=== PATIENT | male | born 2000 | race African-American/Black ===

== ENCOUNTER 2020-04-29 02:40 | Emergency (ER) | payer OTHER, SELFPAY ==
--- NOTE | 2020-04-29 03:07 | ER ---
Nurse's Notes [facility] Name: Armand Bliss JR. Age: 19 yrs Sex: Male : 2000 Arrival Date: 04/29/2020 Time: 02:42 Bed 5 Private MD: Diagnosis: Dysphagia-irritation Presentation: 04/29 02:52 Chief complaint: Patient states: sore throat for couple of days. denies fever, cough, rv or SOB. Coronavirus screen: Proceed with normal triage. Ebola Screen: No symptoms or risks identified at this time. Initial Sepsis Screen: Does the patient meet any 2 criteria? No. Patient's initial sepsis screen is negative. Does the patient have a suspected source of infection? No. Patient's initial sepsis screen is negative. Risk Assessment: Do you want to hurt yourself or someone else? Patient reports no desire to harm self or others. Onset of symptoms is unknown. 02:52 Method Of Arrival: Ambulatory rv 02:52 Acuity: KATIE 5 rv Triage Assessment: 02:53 General: Appears comfortable, Behavior is calm, cooperative. Pain: Complains of pain in rv throat. EENT: Throat is clear is pink. Neuro: Level of Consciousness is awake, alert, obeys commands, Oriented to person, place, time, situation. Respiratory: Airway is patent Respiratory effort is even, unlabored. Historical: - Allergies: 02:53 No Known Allergies; rv - PMHx: 02:53 None; rv - PSHx: 02:53 None; rv - Immunization history:: Adult Immunizations up to date. - Social history:: Smoking status: Patient reports the use of cigarette tobacco products, denies chronic smoking, but will smoke occasionally. Screenin:54 Abuse screen: Denies threats or abuse. Denies injuries from another. Nutritional rv screening: No deficits noted. Tuberculosis screening: No symptoms or risk factors identified. Fall Risk None identified. Assessment: 02:54 Respiratory: Airway is patent Breath sounds are clear bilaterally. rv Vital Signs: 02:52 BP 124 / 93; Pulse 88; Resp 16; Pulse Ox 100% on R/A; rv 02:56 Temp 98.6(O); Weight 68.04 kg; Height 5 ft. 8 in. (172.72 cm); rv 02:56 Body Mass Index 22.81 (68.04 kg, 172.72 cm) rv ED Course: 02:42 Patient arrived in ED. ds1 02:43 Gabino Lee MD is Attending Physician. juliet 02:52 Fermin Crawford, RN is Primary Nurse. rv 02:53 Triage completed. rv 02:54 Arm band placed on Patient placed in the treatment room, on a stretcher, Patient rv notified of wait time. 02:55 Patient has correct armband on for positive identification. Pulse ox on. NIBP on. rv 03:06 Teresa Long MD is Referral Physician. juliet 03:21 Neck Soft Tissue XRAY In Process Unspecified. EDMS 03:21 No provider procedures requiring assistance completed. Patient did not have IV access rv during this emergency room visit. Administered Medications: No medications were administered Outcome: 03:07 Discharge ordered by . juliet 03:21 Discharged to home ambulatory. rv 03:21 Condition: good 03:21 Discharge instructions given to patient, Instructed on discharge instructions, follow up and referral plans. Demonstrated understanding of instructions, follow-up care. 03:22 Patient left the ED. rv Signatures: Dispatcher [employer] EDAL Gabino Lee MD MD cha Sanford, Demi ds1 Fermin Crawford, RN RN rv
--- NOTE | 2020-04-29 03:07 | EDPHYS ---
Physician Documentation [facility] Name: Armand Bliss JR. Age: 19 yrs Sex: Male : 2000 Arrival Date: 04/29/2020 Time: 02:42 Bed 5 Private MD: ED Physician Gabino Lee HPI: 04/29 02:57 This 19 yrs old Black Male presents to ER via Ambulatory with complaints of Sore Throat.[facility] 02:57 The patient presents with sore throat, a foreign body sensation in the throat. The [facility] patient describes throat pain as constant. Onset: The symptoms/episode began/occurred 7 day(s) ago. Severity of symptoms: At their worst the symptoms were mild, in the emergency department the symptoms are unchanged. Modifying factors: The symptoms are alleviated by nothing, the symptoms are aggravated by nothing. Associated signs and symptoms: The patient has no apparent associated signs or symptoms. The patient has experienced similar episodes in the past, several times. Historical: - Allergies: 02:53 No Known Allergies; rv - PMHx: 02:53 None; rv - PSHx: 02:53 None; rv - Immunization history:: Adult Immunizations up to date. - Social history:: Smoking status: Patient reports the use of cigarette tobacco products, denies chronic smoking, but will smoke occasionally. ROS: 02:58 Constitutional: Negative for fever, chills, and weight loss, Eyes: Negative for injury, juliet pain, redness, and discharge, Neck: Negative for injury, pain, and swelling, Cardiovascular: Negative for chest pain, palpitations, and edema, Respiratory: Negative for shortness of breath, cough, wheezing, and pleuritic chest pain, Abdomen/GI: Negative for abdominal pain, nausea, vomiting, diarrhea, and constipation, Back: Negative for injury and pain, : Negative for injury, bleeding, discharge, and swelling, MS/Extremity: Negative for injury and deformity, Skin: Negative for injury, rash, and discoloration, Neuro: Negative for headache, weakness, numbness, tingling, and seizure, Psych: Negative for depression, anxiety, suicide ideation, homicidal ideation, and hallucinations, Allergy/Immunology: Negative for hives, rash, and allergies, Endocrine: Negative for neck swelling, polydipsia, polyuria, polyphagia, and marked weight changes, Hematologic/Lymphatic: Negative for swollen nodes, abnormal bleeding, and unusual bruising. 02:58 ENT: Positive for difficulty swallowing. Exam: 02:58 Constitutional: This is a well developed, well nourished patient who is awake, alert, juliet and in no acute distress. Head/Face: Normocephalic, atraumatic. Eyes: Pupils equal round and reactive to light, extra-ocular motions intact. Lids and lashes normal. Conjunctiva and sclera are non-icteric and not injected. Cornea within normal limits. Periorbital areas with no swelling, redness, or edema. ENT: Nares patent. No nasal discharge, no septal abnormalities noted. Tympanic membranes are normal and external auditory canals are clear. Oropharynx with no redness, swelling, or masses, exudates, or evidence of obstruction, uvula midline. Mucous membranes moist. Neck: Trachea midline, no thyromegaly or masses palpated, and no cervical lymphadenopathy. Supple, full range of motion without nuchal rigidity, or vertebral point tenderness. No Meningismus. Chest/axilla: Normal chest wall appearance and motion. Nontender with no deformity. No lesions are appreciated. Cardiovascular: Regular rate and rhythm with a normal S1 and S2. No gallops, murmurs, or rubs. Normal PMI, no JVD. No pulse deficits. Respiratory: Lungs have equal breath sounds bilaterally, clear to auscultation and percussion. No rales, rhonchi or wheezes noted. No increased work of breathing, no retractions or nasal flaring. Abdomen/GI: Soft, non-tender, with normal bowel sounds. No distension or tympany. No guarding or rebound. No evidence of tenderness throughout. Back: No spinal tenderness. No costovertebral tenderness. Full range of motion. Male : Normal genitalia with no discharge or lesions. Skin: Warm, dry with normal turgor. Normal color with no rashes, no lesions, and no evidence of cellulitis. MS/ Extremity: Pulses equal, no cyanosis. Neurovascular intact. Full, normal range of motion. Neuro: Awake and alert, GCS 15, oriented to person, place, time, and situation. Cranial nerves II-XII grossly intact. Motor strength 5/5 in all extremities. Sensory grossly intact. Cerebellar exam normal. Normal gait. Psych: Awake, alert, with orientation to person, place and time. Behavior, mood, and affect are within normal limits. 03:08 Musculoskeletal/extremity: DVT Exam: No signs of deep vein thrombosis. no pain, no juliet swelling, no tenderness, negative Homans' sign noted on exam, no appreciated bluish discoloration, no erythema, no increased warmth. Vital Signs: 02:52 BP 124 / 93; Pulse 88; Resp 16; Pulse Ox 100% on R/A; rv 02:56 Temp 98.6(O); Weight 68.04 kg; Height 5 ft. 8 in. (172.72 cm); rv 02:56 Body Mass Index 22.81 (68.04 kg, 172.72 cm) rv MDM: 02:45 Patient medically screened. [facility] 02:59 Differential diagnosis: Allergic rhinitis, laryngitis, peritonsillar abscess juliet pharyngitis, retropharyngeal abcess tonsillitis, tracheobronchitis. Data reviewed: vital signs, nurses notes, radiologic studies, plain films. Data interpreted: bus driver/monitor: not applicable for this patient encounter. rate is 88 beats/min, Pulse oximetry: on room air is 100 %. Test interpretation: by ED physician or midlevel provider: plain radiologic studies. Counseling: I had a detailed discussion with the patient and/or guardian regarding: the historical points, exam findings, and any diagnostic results supporting the discharge/admit diagnosis, radiology results, the need for outpatient follow up, for definitive care, an ENT specialist. ED course: exam was without significant findings, explained findings and importance of follow up. 03:12 ED course: soft tissue neg, no fb and no sts. [facility] 04/29 02:56 Order name: Neck Soft Tissue XRAY [facility] 04/29 02:56 Order name: PO challenge; Complete Time: 03:17 juliet Administered Medications: No medications were administered Disposition: 04/29/20 03:07 Discharged to Home. Impression: Dysphagia - irritation. - Condition is Stable. - Discharge Instructions: Dysphagia. - Medication Reconciliation Form, Thank You Letter, Antibiotic Education, Prescription Opioid Use form. - Follow up: Private Physician; When: 2 - 3 days; Reason: Recheck today's complaints, Continuance of care, Re-evaluation by your physician. Follow up: Teresa Long MD; When: 2 - 3 days; Reason: Recheck today's complaints, Re-evaluation by your physician. - Problem is new. - Symptoms have improved. Signatures: Dispatcher [employer] EDMS Gabino Lee MD MD cha Vicente, Ronaldo RN RN rv Corrections: (The following items were deleted from the chart) 03:22 03:07 04/29/2020 03:07 Discharged to Home. Impression: Dysphagia - irritation. rv Condition is Stable. Forms are Medication Reconciliation Form, Thank You Letter, Antibiotic Education, Prescription Opioid Use. Follow up: Private Physician; When: 2 - 3 days; Reason: Recheck today's complaints, Continuance of care, Re-evaluation by your physician. Follow up: Teresa Long; When: 2 - 3 days; Reason: Recheck today's complaints, Re-evaluation by your physician. Problem is new. Symptoms have improved. juliet
[2020-04-29 03:30] VITALS: BP 124/93; TEMP 98.6; O2SAT 100
--- NOTE | 2020-04-29 10:26 | RAD REPORT ---
EXAM DESCRIPTION: RAD - Neck Soft Tissue - 04/29/2020 3:20 am CLINICAL HISTORY: Neck pain/sore throat FINDINGS: Hypopharynx is incompletely distended. Subglottic trachea unremarkable. Prevertebral soft tissue appears normal. A radiopaque foreign body is not visualized
== END 2020-04-29 03:22 | disposition home or self-care (01) ==
LOC: ER 02:40
DX: R13.10 Dysphagia, unspecified (principal); F17.210 Nicotine dependence, cigarettes, uncomplicated
CPT/HCPCS: 70360; 99283

== ENCOUNTER 2021-11-19 13:24 | Emergency (ER) | payer SELFPAY ==
--- NOTE | 2021-11-19 14:18 | ER ---
Nurse's Notes [facility] Name: Armand Bliss JR. Age: 21 yrs Sex: Male : 2000 Arrival Date: 11/19/2021 Time: 13:40 Bed 8 Private MD: Diagnosis: Other depressive episodes Presentation: 11/19 13:57 Chief complaint: EMS states: "the pt is having thoughts of suicide today and looking to [facility] get help. pt reported having a strong support group with his mom. he also reported self medicating to help, but is wanting some professional help.". Coronavirus screen: At this time, the client does not indicate any symptoms associated with coronavirus-19. Ebola Screen: Patient negative for fever greater than or equal to 101.5 degrees Fahrenheit, and additional compatible Ebola Virus Disease symptoms. Initial Sepsis Screen: Does the patient meet any 2 criteria? No. Patient's initial sepsis screen is negative. Does the patient have a suspected source of infection? No. Patient's initial sepsis screen is negative. Risk Assessment: Do you want to hurt yourself or someone else? Patient reports desire/thoughts of hurting themselves or someone else. Provider notified. Onset of symptoms was November 19, 2021. 13:57 Method Of Arrival: Law Enforcement: [facility] [place] [facility] 13:57 Acuity: KATIE 2 jd3 Historical: - Allergies: 13:59 PENICILLINS; jd3 - Home Meds: 13:59 None [Active]; jd3 - PMHx: 13:59 None; jd3 - PSHx: 13:59 None; jd3 - Immunization history:: Adult Immunizations up to date, Client reports having NOT received the Covid vaccine. Flu vaccine is not up to date. - Social history:: Smoking status: Patient denies any tobacco usage or history of. Patient/guardian denies using alcohol, street drugs, The patient lives with family. - Family history:: not pertinent. Screenin:04 Abuse screen: Denies threats or abuse. Nutritional screening: No deficits noted. jd3 Tuberculosis screening: No symptoms or risk factors identified. Fall Risk Ambulatory Aid- None/Bed Rest/Nurse Assist (0 pts). Gait- Normal/Bed Rest/Wheelchair (0 pts) Mental Status- Oriented to own ability (0 pts). Total Ruiz Fall Scale indicates No Risk (0-24 pts). Assessment: 14:03 General: Appears in no apparent distress. comfortable, Behavior is calm, cooperative, jd3 appropriate for age. Pain: Denies pain. Neuro: Level of Consciousness is awake, alert, obeys commands, Oriented to person, place, time, situation. Cardiovascular: Denies chest pain, Capillary refill < 3 seconds Patient's skin is warm and dry. Respiratory: Airway is patent Respiratory effort is even, unlabored, Respiratory pattern is regular, symmetrical, Denies cough, shortness of breath. GI: No signs and/or symptoms were reported involving the gastrointestinal system. : No signs and/or symptoms were reported regarding the genitourinary system. EENT: No signs and/or symptoms were reported regarding the EENT system. Derm: Skin is intact, Skin is dry, Skin is normal, Skin temperature is warm. Musculoskeletal: No signs and/or symptoms reported regarding the musculoskeletal system. 14:39 Reassessment: Patient appears in no apparent distress at this time. Patient and/or jd3 family updated on plan of care and expected duration. Pain level reassessed. Patient is alert, oriented x 3, equal unlabored respirations, skin warm/dry/pink. pt discharged to be treated with out patient care Patient denies pain at this time. Psych: 14:13 [place] Suicide Severity Screening: In the past month, have you wished you were jd3 or wished you could go to sleep and not wake up? Patient responds "No." "In the past month, have you actually had any thoughts of killing yourself?" Patient responds "no." "In your lifetime, have you ever done anything, started to do anything, or prepared to do anything to end your life?" Patient responds "yes." Patient reports suicidal intent occurred greater than 3 months prior. pt reported not wanting to not hurt self at this moment and was wanting helpful resources to get help. Subjective: Patient's mood is hopeful Delusions are denied, Hallucinations are denied Having thoughts of suicide. Denies suicidal plan. Objective: Patient is cooperative, Speech is normal, Affect is appropriate. Interventions: pt to be discharged with mental health resources. Safety Checks: Door is open. No visitors are present at this time. sitter at bedside. Pt denies substance abuse. 14:41 Commitment: pt discharged. jd3 Vital Signs: 14:00 BP 120 / 75; Pulse 68; Resp 16 S; Temp 98.3(O); Pulse Ox 99% on R/A; Weight 56.7 kg jd3 (R); Height 5 ft. 9 in. (175.26 cm) (R); Pain 0/10; 14:00 Body Mass Index 18.46 (56.70 kg, 175.26 cm) j ED Course: 13:40 Patient arrived in ED. eb 13:56 Sam Mejía RN is Primary Nurse. jd3 13:59 Triage completed. jd3 14:03 Loki Crisostomo MD is Attending Physician. ma2 14:03 Arm band placed on. jd3 14:04 Patient has correct armband on for positive identification. Bed in low position. Call j light in reach. Side rails up X 1. Adult w/ patient. Pulse ox on. NIBP on. 14:39 No provider procedures requiring assistance completed. Patient did not have IV access j during this emergency room visit. Administered Medications: No medications were administered Outcome: 14:17 Discharge ordered by . [facility] 14:39 Discharged to home ambulatory, with family. jd3 14:39 Condition: stable 14:39 Discharge instructions given to patient, Instructed on discharge instructions, follow up and referral plans. fallow up with getting psych care Demonstrated understanding of instructions, follow-up care. 14:42 Patient left the ED. jd3 Signatures: Sam Mejía RN RN j Loki Crisostomo MD MD [facility] Darlene Carson Corrections: (The following items were deleted from the chart) 14:00 13:59 Allergies: No Known Allergies; jd3 jd3
--- NOTE | 2021-11-19 14:18 | EDPHYS ---
Physician Documentation [facility] Name: Armand Bliss JR. Age: 21 yrs Sex: Male : 2000 Arrival Date: 11/19/2021 Time: 13:40 Bed 8 Private MD: ED Physician Loki Crisostomo HPI: 11/19 14:07 This 21 yrs old Black Male presents to ER via Law Enforcement with complaints of ma2 Depression. 14:07 Onset: The symptoms/episode began/occurred gradually, 1 year(s) ago. Associated signs ma2 and symptoms: Pertinent negatives: anxiety, chest pain, delusions, hallucinations, headache, homicidal ideation, night sweats, suicide ideation, tremor. Severity of symptoms: At their worst the symptoms were very mild. The patient has not experienced similar symptoms in the past. Patient feels mildly depressed, no SI, no HI or AVH. No guns at home, he is employed, has support system lives with his mom. No plan never had suicidal attempt in the past, never been diagnosed with depression in the past. Historical: - Allergies: 13:59 PENICILLINS; jd3 - Home Meds: 13:59 None [Active]; jd3 - PMHx: 13:59 None; jd3 - PSHx: 13:59 None; jd3 - Immunization history:: Adult Immunizations up to date, Client reports having NOT received the Covid vaccine. Flu vaccine is not up to date. - Social history:: Smoking status: Patient denies any tobacco usage or history of. Patient/guardian denies using alcohol, street drugs, The patient lives with family. - Family history:: not pertinent. ROS: 14:07 Constitutional: Negative for fever, chills, and weight loss. ma2 14:07 All other systems are negative. Exam: 14:07 Constitutional: This is a well developed, well nourished patient who is awake, alert, ma2 and in no acute distress. Head/Face: Normocephalic, atraumatic. Respiratory: Lungs have equal breath sounds bilaterally, clear to auscultation and percussion. No rales, rhonchi or wheezes noted. No increased work of breathing, no retractions or nasal flaring. Abdomen/GI: Soft, non-tender, with normal bowel sounds. No distension or tympany. No guarding or rebound. No evidence of tenderness throughout. Skin: Warm, dry with normal turgor. Normal color with no rashes, no lesions, and no evidence of cellulitis. MS/ Extremity: Pulses equal, no cyanosis. Neurovascular intact. Full, normal range of motion. Neuro: Awake and alert, GCS 15, oriented to person, place, time, and situation. Cranial nerves II-XII grossly intact. Motor strength 5/5 in all extremities. Sensory grossly intact. Cerebellar exam normal. Normal gait. Vital Signs: 14:00 BP 120 / 75; Pulse 68; Resp 16 S; Temp 98.3(O); Pulse Ox 99% on R/A; Weight 56.7 kg jd3 (R); Height 5 ft. 9 in. (175.26 cm) (R); Pain 0/10; 14:00 Body Mass Index 18.46 (56.70 kg, 175.26 cm) jd3 MDM: 14:07 Patient medically screened. ma2 14:07 Differential diagnosis: acute psychotic break, depression, psychosis secondary to ma2 non-compliance. Data reviewed: vital signs, nurses notes, EMS record. Counseling: I had a detailed discussion with the patient and/or guardian regarding: the historical points, exam findings, and any diagnostic results supporting the discharge/admit diagnosis, the presence of at least one elevated blood pressure reading (>120/80) during this emergency department visit, the need for outpatient follow up. Response to treatment: There is no appreciated change of the patient's symptoms at this time. ED course: Low risk depression per sad persons score.. Administered Medications: No medications were administered Disposition Summary: 11/19/21 14:17 Discharge Ordered Location: Home ma2 Condition: Stable ma2 Diagnosis - Other depressive episodes ma2 Followup: ma2 - With: Private Physician - When: Tomorrow - Reason: Continuance of care Discharge Instructions: - Discharge Summary Sheet ma2 - Supporting Someone With Depression ma2 - Managing Depression, Teen ma2 - Managing Depression, Adult ma2 Forms: - Medication Reconciliation Form ma2 - Thank You Letter ma2 - Antibiotic Education ma2 - Prescription Opioid Use ma2 - Work release form ll1 Signatures: Sam Mjeía RN RN jd3 Loki Crisostomo MD MD ma2 Corrections: (The following items were deleted from the chart) 14:00 13:59 Allergies: No Known Allergies; jd3 jd3
[2021-11-19 14:55] VITALS: BP 120/75; TEMP 98.3; O2SAT 99
== END 2021-11-19 14:42 | disposition home or self-care (01) ==
LOC: ER 13:24
DX: F32.89 Other specified depressive episodes (principal)
CPT/HCPCS: 99284

== ENCOUNTER 2024-03-11 12:25 | Emergency (ER) | payer SELFPAY ==
[2024-03-11] MEDS ORDERED: ONDANSETRON 4 MG/2 ML VIAL ONE (13:14)
[2024-03-11] MEDS ORDERED: LORazepam 2 MG/ML VIAL ONE (13:15)
[2024-03-11] MEDS ORDERED: NA CHLORIDE 0.9% 1,000 ML ONE (13:15)
[2024-03-11 14:12] LABS: Absolute Basophils 0.1 K/uL (0-0.5); Absolute Lymphocytes (CBC) 0.9 K/uL (0.7-4.9); Absolute Monocytes 0.6 K/uL (0.1-1.3); Absolute Neutrophil 12.1 K/uL (1.8-8.0); Basophils % 0.5 % (0-1.3); Eosinophils % 0.3 % (0-4.4); Hematocrit 43.7 % (39.6-49.0); Hemoglobin 14.1 g/dL (13.6-17.9); Lymphocytes % 6.5 % (15.3-44.8); MCH 28.2 pg (27.0-35.0); MCHC 32.4 g/dL (32.0-36.0); MCV 87.2 fL (80-100); MPV 8.7 fL (7.6-11.3); Monocytes % 4.3 % (3.3-12.3); Neutrophils % 88.4 % (41.7-73.7); Platelets 237 thou/uL (152-406); RBC Red Blood Cell Count 5.01 M/uL (4.33-5.43); Red Cell Distribution Width 13.9 % (12.1-15.2)
[2024-03-11 14:38] LABS: ALT/SGPT 21 U/L (16-61); AST/SGOT 15 U/L (15-37); Albumin 3.8 g/dL (3.4-5.0); Albumin/Globulin Ratio 1.3 (1.1-1.8); Alkaline Phosphatase 103 U/L (45-117); Anion Gap 6.8 mEq/L (5.0-15.0); BUN Blood Urea Nitrogen 13 mg/dL (7-18); Bicarbonate 29 mEq/L (21-32); Bilirubin Total 0.3 mg/dL (0.2-1.0); Globulin 2.9 g/dL (2.3-3.5); Glomerular Filtration Rate 85 ml/min (=/>90); Glucose Level 130 mg/dL (74-106); Potassium 3.8 mEq/L (3.5-5.1); Protein, Total 6.7 g/dL (6.4-8.2); Sodium Level 141 mEq/L (136-145)
[2024-03-11 14:39] LABS: Bilirubin Direct < 0.1 mg/dL (0-0.2); Bilirubin Indirect, Calculated ND mg/dL (0.2-0.8)
[2024-03-11] MEDS ORDERED: DIAZEPAM 10 MG/2 ML INJ SYRINGE ONE (14:43)
[2024-03-11 15:28] LABS: PT Prothrombin Time 11.4 SECONDS (9.5-12.5); PTT, Activated Partial Thromb 24.4 SECONDS (24.3-36.9); Protime INR 1.04
[2024-03-11 16:58] LABS: Blood Morphology Comment NOT SEEN (NOT SEEN); Platelet Estimate ADEQ; White Blood Cell Scan OK (OK)
--- NOTE | 2024-03-11 18:51 | EDPHYS ---
Physician Documentation [facility] Name: Armand Bliss Jr Age: 23 yrs Sex: Male : 2000 Arrival Date: 03/11/2024 Time: 12:25 Bed 5 Private MD: ED Physician Felipe Ny HPI: 03/11 12:43 This 23 yrs old Black Male presents to ER via Wheelchair with complaints of Overdose. ec2 12:43 Patient arrives today for evaluation of ingestion of what he calls a mushroom. Patient ec2 reports he was concerned that it is likely something else. Patient reports some nausea as well as some anxiousness. Also complains of generalized weakness. Reports no thoughts of self-harm or harming others, denies any other concerns.. Historical: - Allergies: 12:33 PENICILLINS; ll1 - PMHx: 12:35 None; ll1 - PSHx: 12:35 None; ll1 - Immunization history:: Adult Immunizations up to date. - Infectious Disease History:: Denies. - Social history:: Smoking status: Reported history of juuling and/or vaping. Patient denies any tobacco usage or history of. ROS: 12:43 Constitutional: as per hpi ec2 Exam: 12:43 Constitutional: GEN: NAD Head: atraumatic Eyes: EOMI Ears: External ears are ec2 normal. CV: Tachycardia LUNGS: no respiratory distress ABD: non-distended SKIN: no evidence of rashes MSK: no evidence of trauma NEURO: moves all extremities equally Vital Signs: 12:36 BP 120 / 59; Pulse 119; Resp 17; Temp 99.2; Pulse Ox 100% ; Weight 67.13 kg; Height 5 ll1 ft. 8 in. ; Pain 9/10; 13:32 BP 127 / 73; Pulse 115; Resp 23; Pulse Ox 99% on R/A; ld1 14:39 BP 111 / 51; Pulse 93; Resp 18; Pulse Ox 100% on R/A; ld1 16:19 BP 112 / 50; Pulse 79; Resp 18; Pulse Ox 99% on R/A; ld1 17:49 BP 118 / 57; Pulse 63; Resp 18; Pulse Ox 100% on R/A; ld1 19:00 BP 115 / 60; Pulse 69; Resp 18; Pulse Ox 99% on R/A; rs5 12:36 Body Mass Index 22.50 (67.13 kg, 172.72 cm) ll1 12:36 Pain Scale: Adult ll1 MDM: 12:42 Patient medically screened. ec2 12:43 Data reviewed: vital signs. ED course: Patient arrives today for evaluation of a drug ec2 ingestion. Examination remarkable tachycardic individual is otherwise cooperative and well-appearing and in no acute distress. Will obtain lab work, urine studies, treat the patient's symptoms with crystalloid, Zofran as well as benzodiazepine. Suspect likely ingestion causing the patient's symptoms today. No thoughts of self-harm or harming others.. 13:31 ED course: EKG independently reviewed and interpreted by me, shows sinus rhythm, rate ec2 of 101, no acute ST segment elevations, nonconcerning intervals, benign early repolarization noted. . 14:41 ED course: On reassessment patient is well-appearing and in no acute distress, patient ec2 does remain totally delirious, over the patient Valium as well. . 18:49 ED course: On reassessment patient is awake and alert and answering questions ec2 appropriately. Will discharge home. Suspect toxidrome from the patient's ingestion troponin. Return precautions given.. 03/11 12:43 Order name: Acetaminophen; Complete Time: 15:04 ec2 03/11 12:43 Order name: Basic Metabolic Panel; Complete Time: 15:04 ec2 03/11 12:43 Order name: CBC with Diff; Complete Time: 17:00 ec2 03/11 12:43 Order name: ETOH Level; Complete Time: 15:04 ec2 03/11 12:43 Order name: Hepatic Function; Complete Time: 15:04 ec2 03/11 12:43 Order name: PT-INR; Complete Time: 15:30 ec2 03/11 12:43 Order name: Ptt, Activated; Complete Time: 15:30 ec2 03/11 12:43 Order name: Salicylate; Complete Time: 15:04 ec2 03/11 14:24 Order name: CBC Smear Scan; Complete Time: 17:00 EDMS 03/11 12:43 Order name: EKG; Complete Time: 12:43 ec2 03/11 12:43 Order name: EKG - Nurse/Tech; Complete Time: 13:32 ec2 03/11 12:43 Order name: IV Saline Lock; Complete Time: 13:32 ec2 03/11 12:43 Order name: Labs collected and sent; Complete Time: 14:38 ec2 03/11 12:43 Order name: Suicide Screening ([place]); Complete Time: 13:32 ec2 Administered Medications: 13:31 Drug: NS 0.9% IV 1000 ml IV at 1 bolus Per protocol; 1000 mL bolus Route: IV; Rate: 1 ld1 bolus; Site: left upper arm; 13:45 Follow up: Response: No adverse reaction rs5 13:31 Drug: Ativan IVP 1 mg IVP once Route: IVP; Site: left upper arm; ld1 13:45 Follow up: Response: No adverse reaction rs5 13:31 Drug: Ondansetron IVP 4 mg IVP once; over 2 minutes Route: IVP; Site: left upper arm; ld1 13:45 Follow up: Response: No adverse reaction rs5 14:48 Drug: Diazepam IVP 10 mg IVP once Route: IVP; Site: left antecubital; ld1 15:05 Follow up: Response: No adverse reaction rs5 Disposition Summary: 03/11/24 18:50 Discharge Ordered Notes: Location: Home ec2 Condition: Stable ec2 Diagnosis - Drug Intoxication ec2 Followup: ec2 - With: Private Physician - When: - Reason: Re-evaluation by your physician Discharge Instructions: - Discharge Summary Sheet ec2 - Illegal Drug Use Information, Adult ec2 Forms: - Medication Reconciliation Form ec2 - Thank You Letter ec2 - Antibiotic Education ec2 - Prescription Opioid Use ec2 - Patient Portal Instructions ec2 - Leadership Thank You Letter ec2 Signatures: Dispatcher [employer] Mehul Nelson RN RN ll1 Vanessa Hicks RN RN ld1 Felipe Ny MD MD ec2 Margarito Lino RN rs5 Corrections: (The following items were deleted from the chart) 12:36 12:35 Social history: Smoking status: Patient denies any tobacco usage or history of. ll1 ll1 12:43 12:43 ACETAMINOPHEN+C.LAB.BRZ ordered. EDMS EDMS 12:43 12:43 BASIC METABOLIC PANEL+C.LAB.BRZ ordered. EDMS EDMS 12:43 12:43 CBC+H.LAB.BRZ ordered. EDMS EDMS 12:43 12:43 ETHANOL+C.LAB.BRZ ordered. EDMS EDMS 12:43 12:43 HEPATIC FUNCTION+C.LAB.BRZ ordered. EDMS EDMS 12:43 12:43 PROTIME (+INR)+COAG.LAB.BRZ ordered. EDMS EDMS 12:43 12:43 PTT, ACTIVATED+COAG.LAB.BRZ ordered. EDMS EDMS 12:43 12:43 SALICYLATE+C.LAB.BRZ ordered. EDMS EDMS 12:43 12:43 URINE DRUG SCREEN+UC.LAB.BRZ ordered. EDMS EDMS
--- NOTE | 2024-03-11 18:51 | ER ---
Nurse's Notes [facility] Name: Armand Bliss Jr Age: 23 yrs Sex: Male : 2000 Arrival Date: 03/11/2024 Time: 12:25 Bed 5 Private MD: Diagnosis: Drug Intoxication Presentation: 03/11 12:36 Chief complaint: Chief complaint: Patient states: Ate edible this AM. Has nausea and ll1 feels weird. Pepto didn't help. 12:36 Coronavirus screen: Client denies travel out of the [place] in the last 14 days. At this ll1 time, the client does not indicate any symptoms associated with coronavirus-19. Ebola Screen: Patient denies travel to an Ebola-affected area in the 21 days before illness onset. Initial Sepsis Screen: Does the patient meet any 2 criteria? No. Patient's initial sepsis screen is negative. Does the patient have a suspected source of infection? No. Patient's initial sepsis screen is negative. Risk Assessment: Do you want to hurt yourself or someone else? Patient reports no desire to harm self or others. Onset of symptoms was March 11, 2024. 12:36 Method Of Arrival: Wheelchair ll1 12:36 Acuity: KATIE 2 ll1 Historical: - Allergies: 12:33 PENICILLINS; ll1 - PMHx: 12:35 None; ll1 - PSHx: 12:35 None; ll1 - Immunization history:: Adult Immunizations up to date. - Infectious Disease History:: Denies. - Social history:: Smoking status: Reported history of juuling and/or vaping. Patient denies any tobacco usage or history of. Screenin:33 [facility] ED Fall Risk Assessment (Adult) History of falling in the last 3 months, ld1 including since admission No falls in past 3 months (0 pts). Abuse screen: Denies threats or abuse. Denies injuries from another. Nutritional screening: No deficits noted. Tuberculosis screening: No symptoms or risk factors identified. Assessment: 13:32 General: Appears in no apparent distress. comfortable, Behavior is cooperative, ld1 anxious. Pain: Denies pain. Neuro: Level of Consciousness is awake, alert, obeys commands, Oriented to person, place, time, situation. Cardiovascular: Capillary refill < 3 seconds Patient's skin is warm and dry. Rhythm is sinus tachycardia. Respiratory: Airway is patent Respiratory effort is even, unlabored. GI: Abdomen is flat, non-distended. : No signs and/or symptoms were reported regarding the genitourinary system. EENT: No signs and/or symptoms were reported regarding the EENT system. Derm: No signs and/or symptoms reported regarding the dermatologic system. Musculoskeletal: No signs and/or symptoms reported regarding the musculoskeletal system. 14:39 Reassessment: Patient appears in no apparent distress at this time. No changes from ld1 previously documented assessment. Patient and/or family updated on plan of care and expected duration. Pain level reassessed. 16:19 Reassessment: Patient appears in no apparent distress at this time. Patient and/or ld1 family updated on plan of care and expected duration. Pain level reassessed. Patient is alert, oriented x 3, equal unlabored respirations, skin warm/dry/pink. 17:30 Reassessment: Patient and/or family updated on plan of care and expected duration. Pain rs5 level reassessed. Patient is alert, oriented x 3, equal unlabored respirations, skin warm/dry/pink. Patient states feeling better. 19:00 Reassessment: No changes from previously documented assessment. rs5 Overdose: 12:30 [place] Suicide Severity Screening: "In the past month, have you wished you were rs5 or wished you could go to sleep and not wake up?" Patient responds "no." "In the past month, have you actually had any thoughts of killing yourself?" Patient responds "no." "In your lifetime, have you ever done anything, started to do anything, or prepared to do anything to end your life?" Patient responds "no.". Vital Signs: 12:36 BP 120 / 59; Pulse 119; Resp 17; Temp 99.2; Pulse Ox 100% ; Weight 67.13 kg; Height 5 ll1 ft. 8 in. ; Pain 9/10; 13:32 BP 127 / 73; Pulse 115; Resp 23; Pulse Ox 99% on R/A; ld1 14:39 BP 111 / 51; Pulse 93; Resp 18; Pulse Ox 100% on R/A; ld1 16:19 BP 112 / 50; Pulse 79; Resp 18; Pulse Ox 99% on R/A; ld1 17:49 BP 118 / 57; Pulse 63; Resp 18; Pulse Ox 100% on R/A; ld1 19:00 BP 115 / 60; Pulse 69; Resp 18; Pulse Ox 99% on R/A; rs5 12:36 Body Mass Index 22.50 (67.13 kg, 172.72 cm) ll1 12:36 Pain Scale: Adult ll1 ED Course: 12:26 Patient arrived in ED. mr 12:26 Felipe Ny MD is Attending Physician. ec2 12:33 Arm band placed on. ll1 12:37 Triage completed. ll1 13:32 No provider procedures requiring assistance completed. Inserted saline lock: 20 gauge ld1 in left upper arm, using aseptic technique. 13:33 Patient has correct armband on for positive identification. Placed in gown. Bed in low ld1 position. Call light in reach. Side rails up X2. Pulse ox on. NIBP on. electric appliance installer on. Door closed. Noise minimized. Warm blanket given. 13:34 Vanessa Hicks RN is Primary Nurse. ld1 19:02 IV discontinued, intact, bleeding controlled, No redness/swelling at site. Pressure rs5 dressing applied. Administered Medications: 13:31 Drug: NS 0.9% IV 1000 ml IV at 1 bolus Per protocol; 1000 mL bolus Route: IV; Rate: 1 ld1 bolus; Site: left upper arm; 13:45 Follow up: Response: No adverse reaction rs5 13:31 Drug: Ativan IVP 1 mg IVP once Route: IVP; Site: left upper arm; ld1 13:45 Follow up: Response: No adverse reaction rs5 13:31 Drug: Ondansetron IVP 4 mg IVP once; over 2 minutes Route: IVP; Site: left upper arm; ld1 13:45 Follow up: Response: No adverse reaction rs5 14:48 Drug: Diazepam IVP 10 mg IVP once Route: IVP; Site: left antecubital; ld1 15:05 Follow up: Response: No adverse reaction rs5 Medication: 14:05 VIS not applicable for this client. rs5 Outcome: 18:50 Discharge ordered by . ec2 19:02 Discharged to home ambulatory, with family, rs5 19:02 Condition: stable 19:02 Discharge instructions given to patient, family, Instructed on discharge instructions, follow up and referral plans. Demonstrated understanding of instructions, follow-up care, 19:02 Patient left the ED. rs5 Signatures: Anahy Olivares, Reg Reg mr Mehul Billingsley, RN RN ll1 Vanessa Hicks RN RN ld1 Margarito Lino RN RN rs5 Felipe Ny MD MD ec2 Corrections: (The following items were deleted from the chart) 12:36 12:35 Social history: Smoking status: Patient denies any tobacco usage or history of. ll1 ll1 12:37 12:36 Chief complaint: ll1 ll1
[2024-03-11 21:33] VITALS: TEMP 99.2; O2SAT 99
[2024-03-11 22:11] VITALS: BP 115/60
== END 2024-03-11 19:02 | disposition home or self-care (01) ==
LOC: ER 12:25
DX: T50.991A Poisoning by other drugs, medicaments and biological substances, accidental (unintentional), initial encounter (principal); Z88.0 Allergy status to penicillin
CPT/HCPCS: 36415; 80048; 80076; 80143; 80179; 82077; 85025; 85610; 85730; 93005; 99285; J2405; J3360; J7030

== ENCOUNTER 2024-10-18 01:56 | Emergency (ER) | payer SELFPAY ==
--- NOTE | 2024-10-18 02:11 | EDPHYS ---
Physician Documentation [facility] Name: Armand Bliss Jr Age: 24 yrs Sex: Male : 2000 Arrival Date: 10/18/2024 Time: 01:56 Bed IW1 Private MD: ED Physician Juan Manuel Daniels HPI: 10/18 02:07 This 24 yrs old Black Male presents to ER via Unassigned with complaints of concern sp3 after eating undercooked chicken. 02:07 24-year-old male with no significant past medical history presents with concerns of sp3 health after eating undercooked chicken. Patient states that it was not fully cooked and he ate it and then counteracted it with "an edible". He denies any vomiting, abdominal pain, diarrhea, fever or any other signs or symptoms on ROS at this time.. Historical: - Allergies: 02:08 PENICILLINS; ha1 - Immunization history:: Adult Immunizations up to date. - Infectious Disease History:: Denies. - Social history:: Smoking status: Patient uses street drugs, marijuana. ROS: 02:07 Constitutional: Negative for fever, chills, and weight loss, Eyes: Negative for injury, sp3 pain, redness, and discharge, ENT: Negative for injury, pain, and discharge, Neck: Negative for injury, pain, and swelling, Cardiovascular: Negative for chest pain, palpitations, and edema, Respiratory: Negative for shortness of breath, cough, wheezing, and pleuritic chest pain, Back: Negative for injury and pain, MS/Extremity: Negative for injury and deformity, Skin: Negative for injury, rash, and discoloration, Neuro: Negative for headache, weakness, numbness, tingling, and seizure, Psych: Negative for depression, anxiety, suicide ideation, homicidal ideation, and hallucinations, Allergy/Immunology: Negative for hives, rash, and allergies, Endocrine: Negative for neck swelling, polydipsia, polyuria, polyphagia, and marked weight changes, Hematologic/Lymphatic: Negative for swollen nodes, abnormal bleeding, and unusual bruising, 02:07 All other systems are negative, Exam: 02:08 Constitutional: This is a well developed, well nourished patient who is awake, alert, sp3 and in no acute distress. Head/Face: Normocephalic, atraumatic. Eyes: Pupils equal round and reactive to light, extra-ocular motions intact. Lids and lashes normal. Conjunctiva and sclera are non-icteric and not injected. Cornea within normal limits. Periorbital areas with no swelling, redness, or edema. Neck: Trachea midline, no thyromegaly or masses palpated, and no cervical lymphadenopathy. Supple, full range of motion without nuchal rigidity, or vertebral point tenderness. No Meningismus. Chest/axilla: Normal chest wall appearance and motion. Nontender with no deformity. No lesions are appreciated. Cardiovascular: Regular rate and rhythm with a normal S1 and S2. No gallops, murmurs, or rubs. Normal PMI, no JVD. No pulse deficits. Respiratory: Lungs have equal breath sounds bilaterally, clear to auscultation and percussion. No rales, rhonchi or wheezes noted. No increased work of breathing, no retractions or nasal flaring. Abdomen/GI: Soft, non-tender, with normal bowel sounds. No distension or tympany. No guarding or rebound. No evidence of tenderness throughout. Back: No spinal tenderness. No costovertebral tenderness. Full range of motion. Skin: Warm, dry with normal turgor. Normal color with no rashes, no lesions, and no evidence of cellulitis. MS/ Extremity: Pulses equal, no cyanosis. Neurovascular intact. Full, normal range of motion. Neuro: Awake and alert, GCS 15, oriented to person, place, time, and situation. Cranial nerves II-XII grossly intact. Motor strength 5/5 in all extremities. Sensory grossly intact. Cerebellar exam normal. Normal gait. 02:08 Abdomen/GI: , 02:08 Psych: Patient appears to be on the effect of hallucinogen with likely source the edible that he ate. Patient is not suicidal, homicidal or a danger to himself. He is not operating a vehicle.. Vital Signs: 02:08 BP 126 / 87; Pulse 117; Resp 19 S; Temp 97.2(T); Pulse Ox 100% on R/A; Weight 70.31 kg; ha1 Height 5 ft. 7 in. ; 02:08 Body Mass Index 24.28 (70.31 kg, 170.18 cm) ha MDM: 02:09 Data reviewed: vital signs, nurses notes. ED course: 24-year-old male with concerns of sp3 undercooked chicken exposure. At this time given no GI symptoms there is no intervention needed. Patient appears to be under the influence of notable which may be contributing to this. There is no SI, HI, psychosis or any other critical pathology to warrant further intervention from a psychiatric standpoint. We will ensure patient is not operating a vehicle or any machinery. Patient will be discharged home at this time.. 02:10 Medical Screening Exam initiated sp3 Administered Medications: No medications were administered Disposition Summary: 10/18/24 02:10 Discharge Ordered Notes: Location: Home sp3 Condition: Stable sp3 Diagnosis - Undercooked meat exposure, unknown drug influence sp3 Followup: sp3 - With: Private Physician - When: Upon discharge from the Emergency Department - Reason: Continuance of care Discharge Instructions: - Discharge Summary Sheet sp3 - Illegal Drug Use Information, Adult sp3 Forms: - Medication Reconciliation Form sp3 - Antibiotic Education sp3 - Prescription Opioid Use sp3 - Patient Portal Instructions sp3 - Leadership Thank You Letter sp3 Signatures: Juan Manuel Daniels MD MD sp3 Serenity Camejo, RN RN ha1
--- NOTE | 2024-10-18 02:19 | ER ---
Nurse's Notes [facility] Name: Armand Bliss Jr Age: 24 yrs Sex: Male : 2000 Arrival Date: 10/18/2024 Time: 01:56 Bed IW1 Private MD: Diagnosis: Undercooked meat exposure, unknown drug influence Presentation: 10/18 02:04 Chief complaint: Patient states: Pt states he ate some raw chicken and took an edible cg from smoke shop. 02:08 Acuity: KATIE 5 ha1 02:08 Coronavirus screen: At this time, the client does not indicate any symptoms associated ha1 with coronavirus-19. Ebola Screen: No symptoms or risks identified at this time. Initial Sepsis Screen: Does the patient meet any 2 criteria? No. Patient's initial sepsis screen is negative. Does the patient have a suspected source of infection? No. Patient's initial sepsis screen is negative. Risk Assessment: Do you want to hurt yourself or someone else? Patient reports no desire to harm self or others. Onset of symptoms was October 18, 2024. 02:08 Method Of Arrival: Ambulatory ha1 02:08 Onset of symptoms was October 18, 2024. 1 Triage Assessment: 02:08 General: Appears comfortable, Behavior is anxious. Pain: Denies pain. Neuro: Level of ha1 Consciousness is awake, alert, obeys commands, Oriented to person, place, time, situation. Cardiovascular: Capillary refill < 3 seconds Patient's skin is warm and dry. Respiratory: Airway is patent Respiratory effort is even, unlabored, Respiratory pattern is regular, symmetrical. GI: Abdomen is flat, non-distended. : No signs and/or symptoms were reported regarding the genitourinary system. Derm: Reports WORMS CRAWLING ON SKIN. Musculoskeletal: Circulation, motion, and sensation intact. Historical: - Allergies: 02:08 PENICILLINS; ha1 - Immunization history:: Adult Immunizations up to date. - Infectious Disease History:: Denies. - Social history:: Smoking status: Patient uses street drugs, marijuana. Screenin:08 Abuse screen: Denies threats or abuse. Denies injuries from another. ha1 02:08 [facility] ED Fall Risk Assessment (Adult) History of falling in the last 3 months, ha1 including since admission No falls in past 3 months (0 pts) Confusion or Disorientation No (0 pts) Intoxicated or Sedated No (0 pts) Impaired Gait No (0 pts) Mobility Assist Device Used No (0 pt) Altered Elimination No (0 pt) Score/Fall Risk Level 0 - 2 = Low Risk Oriented to surroundings, Maintained a safe environment, Educated pt \T\ family on fall prevention, incl call for assistance when getting out of bed, Hourly rounding (assess needs \T\ fall precautionary measures) done. Nutritional screening: No deficits noted. Tuberculosis screening: No symptoms or risk factors identified. Vital Signs: 02:08 BP 126 / 87; Pulse 117; Resp 19 S; Temp 97.2(T); Pulse Ox 100% on R/A; Weight 70.31 kg; ha1 Height 5 ft. 7 in. ; 02:08 Body Mass Index 24.28 (70.31 kg, 170.18 cm) ha1 ED Course: 02:00 Patient arrived in ED. sp3 02:06 Juan Manuel Daniels MD is Attending Physician. sp3 02:08 Arm band placed on right wrist. ha1 02:08 Patient has correct armband on for positive identification. Provided Education on: ha1 FOLLOW [employer] . 02:25 No provider procedures requiring assistance completed. ha1 02:25 Patient did not have IV access during this emergency room visit. ha1 05:24 Triage completed. ha1 Administered Medications: No medications were administered Medication: 02:08 VIS not applicable for this client. ha1 Outcome: 02:10 Discharge ordered by . sp3 02:18 Patient left the ED. ha1 02:25 Discharged to home ambulatory, ha1 02:25 Condition: stable 02:25 Discharge instructions given to patient, Instructed on discharge instructions, follow up and referral plans. Demonstrated understanding of instructions, follow-up care, Signatures: Kanwal Tracy, RN RN Juan Manuel Daniels MD MD sp3 Serenity Camejo RN RN ha1
== END 2024-10-18 02:18 | disposition home or self-care (01) ==
LOC: ER 01:56
DX: T62.91XA Toxic effect of unspecified noxious substance eaten as food, accidental (unintentional), initial encounter (principal); F19.10 Other psychoactive substance abuse, uncomplicated
CPT/HCPCS: 99282